=== PATIENT | male | born 1980 | race Asian ===

== ENCOUNTER 2019-08-01 10:02 | Emergency (ER) | payer BC ==
--- NOTE | 2019-08-01 11:12 | XRAY Report ---
Reason: pain/injury Procedure Date: 08/01/2019 Accession Number: [id number] / [id number] Procedure: XR - Knee 3 View LT CPT Code: Final Report FULL RESULT: EXAM: LEFT KNEE RADIOGRAPHY EXAM DATE: 08/01/2019 10:48 AM. CLINICAL HISTORY: Pain/injury. COMPARISON: None. TECHNIQUE: 3 views. FINDINGS: Bones: Normal. No fractures or bone lesions. Joints: Small joint effusion at the knee. Soft Tissues: Normal. No soft tissue swelling. IMPRESSION: Small joint effusion at the knee. RADIA
--- NOTE | 2019-08-01 11:24 | ED Physician Documentation ---
PD HPI LOWER EXT INJURY - Stated complaint Stated Complaint: L KNEE INJURY - Chief complaint Chief Complaint: Trauma Ext - History obtained from History obtained from: Patient - History of Present Illness PD HPI LOW EXT INJURY LOCATION: Left, Knee Type of injury: Fall, Twist Where injury occurred: Other (Trampoline park) Timing - onset: Yesterday Timing - duration: Days (1) Timing - details: Abrupt onset Pain level max: 0 Pain level now: 7 Improved by: Rest Worsened by: Moving, Other (Ambulating) Associated symptoms: No: Weakness, Numbness, Tingling Contributing factors: No: Anticoagulated Similar symptoms before: No diagnosis Recently seen: Not recently seen - Additional information Additional information: This is a 39-year-old man who presents with complaints that he had a prior injury to his left knee back in 1999 when he was snowboarding and he hyperextended it. He never had any orthopedic evaluation for it but is bothered him off and on through the years. Last night he was at a [employer] with his family and he had gone up in a jump as he came down he was twisted and landed awkwardly on the left foot and the knee buckled underneath of him. He had such severe pain he got nauseous and near syncopal his vision just kind of tunneled and down to nothing. He took some Tylenol last night but it was knee was kind of stiff and bothering him a little bit through the night. Today he can walk on it but the pain can go up to a sore at 7 out of 10 when he walks on it is just sore just sitting here. He does not have any numbness or tingling down into his toes. He is on Celexa, Xanax, trazodone and risperidone for his scribed by a psychiatrist in [place]. He has a sitdown job. Review of Systems Skin: denies: Abrasion (s), Laceration (s) Musculoskeletal: reports: Extremity pain, Joint pain Neurologic: denies: Numbness PD PAST MEDICAL HISTORY - Present Medications Home Medications: Ambulatory Orders Medication Instructions Recorded Confirmed Ibuprofen [Motrin] 800 mg PO Q8H PRN #30 tablet 08/01/19 - Allergies Allergies/Adverse Reactions: Allergies Allergy/AdvReac Type Severity Reaction Status Date / Time No Known Drug Allergies Allergy Verified 08/01/19 10:23 PD ED PE NORMAL - Vitals Vital signs reviewed: Yes - General General: Alert and oriented X 3, No acute distress, Well developed/nourished - Derm Derm: Normal color, Warm and dry, No rash - Extremities Extremities: No deformity, Other (Minimal if any swelling to the left knee. There is no bruising. He has full range of motion. The knee is stable to varus and valgus stresses and there is a negative no joint line tenderness. He has 2+ dorsalis pedis pulses bilaterally. He is able to wiggle his toes and sensation is intact to light touch. ) - Neuro Neuro: Alert and oriented X 3, labor relations consultant 2-12 intact, No motor deficit, No sensory deficit, Normal speech - Psych Psych: Normal mood, Normal affect Results - Vitals Vitals: Vital Signs - 24 hr 08/01/19 10:23 Temperature 36.8 C Heart Rate 100 Respiratory 18 Rate Blood Pressure 140/90 H O2 Saturation 96 Oxygen O2 Source Room air - Rads (name of study) L knee Radiology: EMP read contemporaneously (neg fracture) PD MEDICAL DECISION MAKING - ED course Complexity details: reviewed results, d/w patient ED course: X-ray did not reveal any fracture. Patient was recommended to use crutches to minimize weightbearing but he prefers to get a set at a used secondhand store. Recommended passive range of motion exercises to prevent the knee from getting stiff. Given a prescription for Motrin and instructed to ice for comfort. Follow-up with primary care provider provider for reevaluation if this is not improving in 2 weeks. Departure - Departure Disposition: 01 Home, Self Care Clinical Impression: Derangement of knee, left Condition: Good Instructions: ED Sprain Knee Follow-Up: [facility] [Provider Group] Prescriptions: Ibuprofen [Motrin] 800 mg PO Q8H PRN #30 tablet PRN Reason: PAIN &/OR FEVER Comments: Use crutches if desired to minimize the weightbearing. Be sure to do passive range of motion exercises. Avoid standing and twisting, squatting or stooping on it. Ice may also help control pain and swelling. Take the Motrin every 8 hours with food if desired for pain. Follow-up with the primary care provider particular if this is not improving in 2 weeks.
[2019-08-01] MEDS ORDERED: IBUPROFEN 600 MG TABLET PO STA (11:32)
[2019-08-01] MEDS ORDERED: IBUPROFEN 800 MG TABLET PO STA (11:44)
[2019-08-01 11:55] VITALS: BP 134/89
== END 2019-08-01 11:55 | disposition home or self-care (01) ==
LOC: ED 10:02
DX: M23.92 Unspecified internal derangement of left knee (principal); X50.1XXA Overexertion from prolonged static or awkward postures, initial encounter; Y93.44 Activity, trampolining; Y92.39 Other specified sports and athletic area as the place of occurrence of the external cause
CPT/HCPCS: 73562; 99283; 99284; A9270

== ENCOUNTER 2019-09-27 13:10 | Outpatient (CLI) | payer BC ==
--- NOTE | 2019-09-28 11:33 | MRI Report ---
Reason: PAIN IN LT KNEE Procedure Date: 09/27/2019 Accession Number: [id number] / [id number] Procedure: MRI - Knee LT W/O CPT Code: Final Report FULL RESULT: EXAM: LEFT KNEE MRI WITHOUT CONTRAST EXAM DATE: 09/27/2019 02:51 PM. CLINICAL HISTORY: Pain in left knee. COMPARISON: Radiographs 08/01/2019. TECHNIQUE: Multiplanar, multisequence T1-weighted and fluid-sensitive sequences of the knee without contrast. Other: None. FINDINGS: Bones: Mild reactive edema medial and posterior margin medial femoral condyle. Subtle edema posterior margin lateral tibial plateau. Articular Cartilage: Shallow partial-thickness loss and irregularity of lateral compartment and to lesser extent medial compartment. Shallow full-thickness loss and irregularity lateral patellar facet and adjacent to the median ridge. Medial Meniscus: The medial meniscus is intact. Lateral Meniscus: Degenerative fraying at the free edge body and posterior horn. Cruciate Ligaments: Diffuse distortion and diminutive appearance femoral insertion anterior cruciate ligament without gross edema. Some fibers may remain intact. Posterior cruciate ligament intact. Collateral Ligaments: Moderate thickening and edema proximal aspect medial collateral ligament. Disruption of the posterior third of the proximal-most fibers. Diffuse edema and distortion of the adjacent posterior medial joint capsule. Edema and distortion at the femoral aspect deep meniscofemoral ligament. Mild thickening and edema proximal aspect lateral collateral ligament. Tendons: The quadriceps, patellar, semimembranosus, and popliteus tendons are unremarkable. Musculature: No edema or fatty atrophy. Other: Small joint effusion. Minimal popliteal cyst. No loose bodies. The medial and lateral retinacula are intact. The subcutaneous tissues and fat pads are unremarkable. IMPRESSION: 1. Grade 2 sprain and partial-thickness tear posterior fibers medial collateral ligament, likely acute to subacute. 2. Moderate to severe strain and at least partial thickness tear posterior medial joint capsule and medial meniscofemoral ligament. 3. Grade 1 sprain lateral collateral ligament likely acute to subacute. 4. High-grade partial versus complete tear anterior cruciate ligament. This may be subacute to chronic. 5. Small joint effusion. 6. Degenerative fraying lateral meniscus. 7. Mild tricompartment cartilage loss. 8. Subtle reactive edema or bone contusion versus sequelae of subtle impaction fracture posterior margin lateral tibial plateau. This may be subacute. RADIA
== END 2019-09-27 13:11 | disposition home or self-care (01) ==
LOC: DI 13:10
PROVIDERS: ATTEND Orthopaedic Surgery Sports Medicine
DX: S83.412A Sprain of medial collateral ligament of left knee, initial encounter (principal); S83.422A Sprain of lateral collateral ligament of left knee, initial encounter; S83.8X2A Sprain of other specified parts of left knee, initial encounter

== ENCOUNTER 2022-08-05 21:40 | Emergency (ER) | payer BC ==
--- NOTE | 2022-08-05 22:47 | ED Physician Documentation ---
PD HPI MALE - Stated complaint Stated Complaint: MALE - Chief complaint Chief Complaint: General - History obtained from History obtained from: Patient - History of Present Illness Timing - onset: How many weeks ago (2) Timing - details: Gradual onset, Constant, Waxing and waning Pain level now: 6 Associated symptoms: Testiclar pain. No: Dysuria, Urinary frequency, Discharge, Genital sore / lesion, Scrotal swelling Recently seen: Clinic - Additional information Additional information: patient c/o 2 weeks of left testicular pain. Denies injury, denies h/o similar symptoms. No specific inciting event. Pain was gradual onset, constant since onset but steadily worsening in intensity. He went to a walk-in clinic 2 days ago and had urinalysis performed and STD testing (STD test results are pending). He was prescribed levaquin which patient says was to treat suspected epididymitis and he started the antibiotic 2 days ago. He was instructed to go to the ED if symptoms worsen for possible testicular US. He presents at this time due to worsening left testicular pain. Denies d/c. Review of Systems Constitutional: denies: Fever : reports: Testicular pain. denies: Dysuria, Frequency, Hematuria, Discharge Skin: denies: Rash, Lesions PD PAST MEDICAL HISTORY - Past Medical History Past Medical History: Yes Psych: Depression, Anxiety - Present Medications Home Medications: Ambulatory Orders Medication Instructions Recorded Confirmed ALPRAZolam [Alprazolam] 1 - 2 tab PO BID PRN 08/05/22 08/05/22 Bupropion HCl [Wellbutrin Xl] 300 mg PO DAILY 08/05/22 08/05/22 levoFLOXacin [Levofloxacin] 500 mg PO DAILY 08/05/22 08/05/22 risperiDONE [Risperdal] 2 mg PO DAILY PM 08/05/22 08/05/22 - Allergies Allergies/Adverse Reactions: Allergies Allergy/AdvReac Type Severity Reaction Status Date / Time No Known Drug Allergies Allergy Verified 08/05/22 21:56 - Social History Does the pt smoke?: No Smoking Status: Never smoker Does the pt drink ETOH?: Yes Does the pt have substance abuse?: No PD ED PE NORMAL - Vitals Vital signs reviewed: Yes - General General: Alert and oriented X 3, No acute distress, Well developed/nourished - Abdomen Abdomen: Soft, Non tender PD ED PE EXPANDED - Male Male : Normal Exam, Normal lie/cremastaric, Tenderness, Other (mild left testicular TTP without palpable mass; no obvious scrotal swelling, no erythema. normal testicular lie, normal cremasteric reflex). No: Testicular Mass Results - Vitals Vitals: Oxygen O2 Source Room air - Rads (name of study) testicular US Radiology: Prelim report reviewed, See rad report PD Medical Decision Making - ED course Complexity details: reviewed results, re-evaluated patient, considered differential, d/w patient ED course: US shows no evidence of testicular torsion. The initial report from the photographic editor is findings c/w mild left epididymitis; the final radiology report is c/w mild right epididymitis. Given that patient's symptoms are left- sided and the concurrence of laterality with the US lawn care technician's report, I suspect the radiologist's reading is meant to reflect left-sided findings. Given that the findings are mild and the lack of other concerning findings, the treatment is the same regardless of laterality of the findings in this case. I discussed the findings with the patient and advised him to continue with the levaquin. I did consider broadening the antibiotic coverage to cover possible STD causes such as gonorrhea, chlamydia. Given lack of discharge (both on exam and by patient history), and that there are GC/chlamydia test results pending from outpatient clinic, I do not see the need to change the antibiotic coverage at this time; I explained to patient that change in antibiotic (or addition of a second antibiotic) might be necessary if one or both of the STD tests result positive. Departure - Departure Disposition: 01 Home, Self Care Clinical Impression: Acute epididymitis Condition: Good Instructions: ED Epididymitis Comments: The ultrasound suggests mild inflammation of the epididymis; this supports the diagnosis of epididymitis. As we discussed, there are different causes of epididymitis including infection. I would recommend that you continue the antibiotic you are currently taking. Discharge Date/Time: 08/06/22 00:38
--- NOTE | 2022-08-06 00:01 | Ultrasound Report ---
PROCEDURE: Testicle w/Doppler INDICATIONS: Testicular pain TECHNIQUE: Real-time scanning was performed of the scrotum and testicles, with image documentation. Color and p ulse Doppler interrogation was performed of both testicles. COMPARISON: None. FINDINGS: Right: Testicle measures 5.2 x 2.6 x 3.1 cm and appears homogenous in echotexture. There is a mildly heterogeneous appearance of the right epididymis. No hydrocele or varicoceles. Overlying scrotal sk in is normal in thickness. Left: Testicle measures 5 x 2.3 x 2.8 cm and appears homogeneous in echotexture. Epididymis is norm al in overall size and morphology. No hydrocele or varicoceles. Overlying scrotal skin is normal in thickness. Doppler: Color and pulse Doppler demonstrate normal and symmetric arterial flow in both testicles. Venous flow is also demonstrated bilaterally. IMPRESSION: 1. No evidence of testicular torsion. 2. Mildly heterogeneous right epididymis is nonspecific but may reflect a mild epididymitis. Reviewed by: Stephon Rodriguez MD on 08/06/2022 12:10 AM PST Approved by: Stephon Rodriguez MD on 08/06/2022 12:10 AM PST Station ID: [id number]
[2022-08-06 00:38] VITALS: BP 123/88
== END 2022-08-06 00:38 | disposition home or self-care (01) ==
LOC: ED 21:40
DX: N45.1 Epididymitis (principal)
CPT/HCPCS: 93975; 99283; 99284

== ENCOUNTER 2022-08-18 08:00 | Outpatient (CLI) | payer BC ==
[2022-08-18 20:42] LABS: BILIRUBIN,URINE NEGATIVE (NEGATIVE); GLUCOSE, URINE (UA) NEGATIVE (NEGATIVE); KETONES,URINE (UA) NEGATIVE (NEGATIVE); LEUKOCYTE ESTERASE, URINE NEGATIVE (NEGATIVE); NITRITE,URINE NEGATIVE (NEGATIVE); OCCULT BLOOD,URINE NEGATIVE (NEGATIVE); PROTEIN,URINE NEGATIVE (NEGATIVE); UROBILINOGEN,URINE 0.2 (NORMAL) E.U./dL (NORMAL)
[2022-08-18 20:43] LABS: CLARITY,URINE CLEAR (CLEAR)
[2022-08-18 20:57] LABS: BACTERIA,URINE None Seen /HPF (None Seen); RBC,URINE None Seen /HPF (0-5); SQUAMOUS EPITHELIAL CELL,UR NONE SEEN (<= Few); WBC,URINE 0-3 /HPF (0-3)
== END 2022-08-18 23:59 | disposition home or self-care (01) ==
LOC: LAB 08:00
PROVIDERS: ATTEND Emergency Medicine
DX: N41.0 Acute prostatitis (principal)
CPT/HCPCS: 81001; 87086